=== PATIENT | male | born 1955 | race Caucasian/White ===

== ENCOUNTER 2018-01-29 23:03 | Emergency (ER) | payer MEDICARE, OTHER ==
[2018-01-29 23:07] VITALS: BP 138/97; PULSE 83; RESP 17; TEMP 98.2; O2SAT 96
[2018-01-29] MEDS ORDERED: Naproxen 500 MG TAB PO STA (23:34)
--- NOTE | 2018-01-29 23:35 | ED PDOC ---
Lower Extremity Pain/Injury Time Seen by Provider: 01/29/18 23:10 Chief Complaint (Nursing): Lower Extremity Problem/Injury Chief Complaint (Provider): bilateral knee abrasions Past Medical History Vital Signs: Last Vital Signs Temp 98.2 F 01/29/18 23:04 Pulse 83 01/29/18 23:04 Resp 17 01/29/18 23:04 BP 138/97 H 01/29/18 23:04 Pulse Ox 96 01/29/18 23:04 - Home Medications Home Medications: Ambulatory Orders Medication Instructions Recorded Bacitracin Ointment [Bacitracin] 30 gm TOP BID #1 tube 01/29/18 - Allergies Allergies/Adverse Reactions: Allergies Allergy/AdvReac Type Severity Reaction Status Date / Time No Known Allergies Allergy Verified 01/29/18 23:07 - ECG O2 Sat by Pulse Oximetry: 96 Disposition - Clinical Impression Clinical Impression: Abrasion - Patient ED Disposition Is Patient to be Admitted: No Counseled Patient/Family Regarding: Diagnosis, Need For Followup, Rx Given - Disposition Referrals: [facility] [Outside] Disposition: Routine/Home Disposition Time: 23:34 Condition: STABLE Prescriptions: Bacitracin Ointment [Bacitracin] 30 gm TOP BID #1 tube Instructions: Skin Abrasions (DC)
[2018-01-29] MEDS ORDERED: Naproxen 500 MG TAB PO ONE (23:52)
== END 2018-01-30 04:00 | disposition home or self-care (01) ==
LOC: H.ER 23:03
DX: S80.211A Abrasion, right knee, initial encounter (principal); S80.212A Abrasion, left knee, initial encounter; W10.8XXA Fall (on) (from) other stairs and steps, initial encounter; Y92.89 Other specified places as the place of occurrence of the external cause